=== PATIENT | female | born 1975 | race Caucasian/White ===

== ENCOUNTER 2018-07-07 16:39 | Emergency (ER) | payer MEDICAID ==
[~2018-07-07] VITALS: Ht 152.4 cm; Wt 87.1 kg
[~2018-07-07 16:39] MED LIST: ALBU18HF INHALATION; ALLERGY MEDS
[2018-07-07 16:47] VITALS: Ht 152.4 cm; Wt 87.1 kg
[2018-07-07] MEDS ORDERED: SOD CHLORIDE 0.9% 500 ML IV STA (20:00)
[2018-07-07] MEDS ORDERED: morphine 4 MG/ML VIAL IV STA (21:02)
--- NOTE | 2018-07-07 22:14 | ERD ---
ER Documentation Chief Complaint Chief Complaint HAD GALLBALDDER SURGERY TODAY @ 9 AM - BLEEDING @ POST OP SITE HPI 42-year-old female status post elective cholecystectomy this morning presenting with bleeding from her infraumbilical surgical site. She also complains of right-sided abdominal pain radiating up into her chest. No alleviating or exacerbating factors. Pain rated at a 7 out of 10. she has not passed gas or had a bowel movement since her surgery. She denies any fevers or chills. No nausea or vomiting. No shortness of breath or chest pain. ROS All systems reviewed and are negative except as per history of present illness. Medications Home Meds Reported Medications Albuterol Sulfate* (Ventolin HFA*) 18 Gm Hfa.aer.ad, 2 PUFF INHALATION Q4H, #1 INHALER 07/07/18 Discontinued Reported Medications [Allergy Meds] No Conflict Check 06/29/11 Allergies Allergies: Coded Allergies: No Known Drug Allergy (Verified Allergy, Unknown, 07/07/18) PMhx/Soc History of Surgery: Yes (,TUBAL LIGATION, GALLBLADDER REMOVAL) Anesthesia Reaction: No Hx Neurological Disorder: No Hx Respiratory Disorders: No Hx Cardiac Disorders: No Hx Psychiatric Problems: No Hx Miscellaneous Medical Probl: No Hx Alcohol Use: No Hx Substance Use: No Hx Tobacco Use: No Smoking Status: Never smoker FmHx Family History: No diabetes Physical Exam Vitals Vital Signs Date Temp Pulse Resp B/P (MAP) Pulse Ox O2 O2 Flow FiO2 Time Delivery Rate 07/07/18 98.3 89 20 136/64 97 Room Air 22:16 (88) 07/07/18 98.1 104 141/64 97 18:13 (89) 07/07/18 98.9 119 24 149/63 97 16:47 (91) Physical Exam Const: No acute distress, well-appearing, nontoxic Head: Atraumatic Eyes: Normal Conjunctiva ENT: Normal External Ears, Nose and Mouth. Neck: Full range of motion. No meningismus. Resp: Clear to auscultation bilaterally Cardio: Regular rate and rhythm, no murmurs Abd: Multiple laparoscopic surgical incision sites noted with dressings clear dry and intact. Infraumbilical incision site with maverick in place, mild oozing of blood. Dressing saturated with blood. Soft, minimally tender in the right mid abdomen hypoactive bowel sounds. Mildly distended Skin: No petechiae or rashes Ext: No cyanosis, or edema Neur: Awake and alert Psych: Normal Mood and Affect Result Diagram: 07/07/18191907/07/181919 Results 24 hrs Laboratory Tests Test 07/07/18 19:13 07/07/18 19:20 POC Beta HCG, Qualitative NEGATIVE White Blood Count 13.3 10^3/ul Red Blood Count 4.06 10^6/ul Hemoglobin 13.1 g/dl Hematocrit 39.0 % Mean Corpuscular Volume 96.1 fl Mean Corpuscular Hemoglobin 32.3 pg Mean Corpuscular Hemoglobin Concent 33.6 g/dl Red Cell Distribution Width 12.3 % Platelet Count 341 10^3/UL Mean Platelet Volume 9.7 fl Immature Granulocytes % 0.500 % Neutrophils % 91.7 % Lymphocytes % 6.8 % Monocytes % 0.8 % Eosinophils % 0.0 % Basophils % 0.2 % Nucleated Red Blood Cells % 0.0 /100WBC Immature Granulocytes # 0.070 10^3/ul Neutrophils # 12.2 10^3/ul Lymphocytes # 0.9 10^3/ul Monocytes # 0.1 10^3/ul Eosinophils # 0.0 10^3/ul Basophils # 0.0 10^3/ul Nucleated Red Blood Cells # 0.0 10^3/ul Sodium Level 138 mmol/L Potassium Level 4.3 mmol/L Chloride Level 105 mmol/L Carbon Dioxide Level 23 mmol/L Anion Gap 10 Blood Urea Nitrogen 11 mg/dl Creatinine 0.61 mg/dl Est Glomerular Filtrat Rate mL/min > 60 mL/min Glucose Level 130 mg/dl Calcium Level 9.2 mg/dl Total Bilirubin 0.4 mg/dl Direct Bilirubin 0.00 mg/dl Indirect Bilirubin 0.4 mg/dl Aspartate Amino Transf (AST/SGOT) 119 IU/L Alanine Aminotransferase (ALT/SGPT) 88 IU/L Alkaline Phosphatase 85 IU/L Total Protein 7.8 g/dl Albumin 4.5 g/dl Globulin 3.30 g/dl Albumin/Globulin Ratio 1.36 Lipase 112 U/L Current Medications Medications Dose Sig/Kamlesh Start Time Status Last (Trade) Ordered Route PRN Stop Time Admin Dose Reason Admin Sodium 500 ml @ Q1H STAT 07/07/18 DC 07/07/18 Chloride 500 mls/hr IV 20:00 20:05 07/07/18 20:59 Morphine 4 mg ONCE STAT 07/07/18 DC 07/07/18 Sulfate IV 21:02 21:09 (morphine) 07/07/18 21:03 Procedures/MDM EMERGENT LABS AND DIAGNOSTIC STUDIES: Lab Results above were reviewed and interpreted by me. CBC: Mild leukocytosis. No anemia. CMP: Mild transaminitis, expected after surgery of gallbladder. No evidence of electrolyte abnormality, renal failure, hypoglycemia, liver failure, or biliary obstruction Radiology Results as interpreted by Radiology below were reviewed by Jolie almazan MD: CT abdomen and pelvis shows trace amount of hemorrhagic material in gallbladder fossa and pericolic gutters. Intra-abdominal air noted, expected after surgery. Initial Nursing notes reviewed. Previous Medical Records requested via the Electronic Health Record. EMERGENCY DEPARTMENT COURSE / MEDICAL DECISION MAKING: I discussed the patient's case with her surgeon, , who recommended labs and a CT of the abdomen. Patient's vitals are stable and she is afebrile at this time. I have a low suspicion for infection, bowel obstruction, or bowel perforation. CT was done which showed findings that would be expected after this type of surgery. However there was no ileus or any other significant abnormalities. I spoke with her surgeon again regarding these results, and he is not very concerned. He states that her pain is well controlled which it is, she may be discharged home with outpatient follow-up with him in the clinic. I discussed this with the patient and she feels comfortable with plan. She has not had any further bleeding from her infraumbilical site. Dressing was placed. She was encouraged to return for any worsening symptoms. Patient's blood pressure was elevated (>120/80) but appears stable without evidence of hypertensive emergency or urgency. The patient was counseled about the risks of hypertension and urged to pursue outpatient monitoring and therapy within a week with their primary care physician. Departure Diagnosis: Primary Impression: Post-op bleeding Surgical complication system/body Area: skin Procedure type: non- dermatologic Qualified Codes: L76.22 - Postprocedural hemorrhage of skin and subcutaneous tissue following other procedure Additional Impression: Postoperative abdominal pain Condition: Stable Patient Instructions: Abdominal Pain, Post Op Wound Check, Bleeding Referrals: Kurt SHARPE NELLIE R. MD Jul 07, 2018 22:13
[2018-07-07 22:16] VITALS: BP 136/64; PULSE 89; RESP 20
== END 2018-07-07 22:18 | disposition home or self-care (01) ==
LOC: E/R 16:39
DX: L76.22 Postprocedural hemorrhage of skin and subcutaneous tissue following other procedure (principal); G89.18 Other acute postprocedural pain
CPT/HCPCS: 36415; 74176; 80053; 81025; 83690; 85025; 96374; J2270; J7040; Z7502